=== PATIENT | male | born 1990 | race Caucasian/White ===

== ENCOUNTER 2024-02-19 13:46 | Emergency (ER) | payer OTHER ==
[~2024-02-19] VITALS: Ht 177.8 cm; Wt 84.8 kg
[2024-02-19] MEDS ORDERED: ACETAMINOPHEN ES 500 MG TABLET ONE (14:37)
[2024-02-19] MEDS ORDERED: IBUPROFEN 400 MG TABLET ONE (14:38)
[2024-02-19] MEDS: ACETAMINOPHEN ES 500 MG TABLET PO ONE (14:41)
[2024-02-19] MEDS: IBUPROFEN 400 MG TABLET PO ONE (14:41)
[2024-02-19 15:35] VITALS: BP 122/74; TEMP 98.5; O2SAT 100
== END 2024-02-19 15:55 | disposition home or self-care (01) ==
LOC: ER 14:18
DX: S83.8X2A Sprain of other specified parts of left knee, initial encounter (principal); Z60.2 Problems related to living alone; V19.9XXA Pedal cyclist (driver) (passenger) injured in unspecified traffic accident, initial encounter; Y93.55 Activity, bike riding; Y92.488 Other paved roadways as the place of occurrence of the external cause; Y99.8 Other external cause status
CPT/HCPCS: 73564-TC

== ENCOUNTER 2024-04-16 00:36 | Emergency (ER) | payer OTHER ==
[~2024-04-16] VITALS: Ht 172.7 cm; Wt 77.1 kg
[2024-04-16] MEDS ORDERED: IBUPROFEN 600 MG TABLET ONE ×2 (02:04→02:12)
[2024-04-16] MEDS: IBUPROFEN 600 MG TABLET PO ONE (02:13)
[2024-04-16] MEDS ORDERED: METH-649 PO (02:15)
[2024-04-16] MEDS ORDERED: IBUP-1953 PO (02:15)
[2024-04-16 02:52] VITALS: BP 135/90; TEMP 98.3; O2SAT 98
== END 2024-04-16 02:53 | disposition home or self-care (01) ==
LOC: ER 00:40
DX: S13.4XXA Sprain of ligaments of cervical spine, initial encounter (principal); M25.512 Pain in left shoulder; M25.511 Pain in right shoulder; Z60.2 Problems related to living alone; Y04.0XXA Assault by unarmed brawl or fight, initial encounter; Y93.89 Activity, other specified; Y92.89 Other specified places as the place of occurrence of the external cause; Y99.8 Other external cause status
CPT/HCPCS: 72125-TC